=== PATIENT | female | born 1995 | race Caucasian/White ===

== ENCOUNTER 2023-08-07 05:26 | Emergency (ER) | payer BC ==
[~2023-08-07] VITALS: Ht 149.9 cm; Wt 78.5 kg
[2023-08-07 05:33] VITALS: BP 132/76; PULSE 95; RESP 18; TEMP 98.4; O2SAT 99
[2023-08-07 05:50] VITALS: O2SAT 98
[2023-08-07] MEDS: IBUPROFEN 600 MG TAB PO ONE (06:21)
[2023-08-07] MEDS: ONDANSETRON 4 MG ODT PO ONE (06:22)
[2023-08-07 06:44] LABS: FLU A ANTIGEN negative (NEGATIVE); FLU B ANTIGEN negative (NEGATIVE)
[2023-08-07] MEDS ORDERED: ALUMINUM HYD/MAG/SIMETHICONE 30 ML UDC ONE (07:51)
[2023-08-07] MEDS: ALUMINUM HYD/MAG/SIMETHICONE 30 ML UDC PO ONE (08:02)
[2023-08-07 08:11] LABS: BILIRUBIN,URINE NEGATIVE (NEGATIVE); BLOOD, URINE TRACE-I (NEGATIVE); COLOR,URINE YELLOW (YELLOW); LEUKOCYTE ESTERASE ,URINE NEGATIVE (NEGATIVE); NITRITE, URINE NEGATIVE (NEGATIVE); PROTEIN,URINE TRACE (NEGATIVE); UGLUCOSE NEGATIVE (NEGATIVE)
[2023-08-07 08:21] LABS: APPEARANCE,URINE TURBID (CLEAR); BACTERIA,URINE FEW /HPF (None Seen); RBC,URINE 0-5 /HPF (0-5); SQUAMOUS EPITHELIAL CELL,UR 4-10 (MOD) /LPF (0-3 (FEW)); WBC,URINE 0-5 /HPF (0-5)
[2023-08-07] MEDS ORDERED: ONDA-188 SL (08:26)
[2023-08-07 08:42] VITALS: BP 115/68; PULSE 95; RESP 20; TEMP 36.89184; O2SAT 98
== END 2023-08-07 08:42 | disposition home or self-care (01) ==
LOC: MED 05:26
DX: R11.10 Vomiting, unspecified (principal); Z20.822 Contact with and (suspected) exposure to COVID-19; Z79.899 Other long term (current) drug therapy
CPT/HCPCS: 81001; 81025; 87426; 87804; 99284; Q0162